=== PATIENT | female | born 1945 | race Caucasian/White ===

== ENCOUNTER 2018-10-21 09:08 | Emergency (ER) | payer MEDICARE ==
[2018-10-21] MEDS ORDERED: Tetracaine 0.5% OPHTH SOLN/PF 4 ML BOT ONE (09:40)
== END 2018-10-21 10:15 | disposition home or self-care (01) ==
LOC: MADERS 09:08
DX: S05.01XA Injury of conjunctiva and corneal abrasion without foreign body, right eye, initial encounter (principal); I48.91 Unspecified atrial fibrillation; E11.9 Type 2 diabetes mellitus without complications; E78.5 Hyperlipidemia, unspecified; E78.00 Pure hypercholesterolemia, unspecified; I10 Essential (primary) hypertension; F32.9 Major depressive disorder, single episode, unspecified; Z79.899 Other long term (current) drug therapy; W22.8XXA Striking against or struck by other objects, initial encounter
CPT/HCPCS: 99283

== ENCOUNTER 2020-11-14 10:03 | Emergency (ER) | payer MEDICARE ==
[2020-11-14 10:57] LABS: #Basophils 0.1 thou/uL (0.0-0.2); #Eosinphils 0.3 thou/uL (0.0-0.7); #Lymphocytes 1.4 thou/uL (1.20-3.40); #Monocytes 0.4 thou/uL (0.11-0.59); #Neutrophils 3.7 thou/uL (1.40-6.50); %Basophils 1.5 % (0.0-1.0); %Eosinophils 5.2 % (0.0-10.0); %Lymphocytes 23.9 % (21.0-51.0); %Monocytes 6.6 % (0.0-10.0); %Neutrophils 62.9 % (42.0-75.0); Hemoglobin 10.7 g/dL (12.0-16.0); Mean Corpuscular HGB CONC 30.7 g/dL (32.0-36.0); Mean Corpuscular Hemoglobin 26.9 pg (27.0-31.0); Mean Corpuscular Volume 87.6 fL (78.0-98.0); Mean Platelet Volume 8.9 fL (7.4-10.4); Platelet Count 189 thou/uL (130-400); RBC Distribution Width 13.7 % (11.5-14.5); Red Blood Cell (RBC) Count 3.97 mill/uL (4.20-5.40); White Blood Cell (WBC) Count 5.9 thou/uL (4.8-10.8)
[2020-11-14 11:08] LABS: ALT (SGPT) 12 U/L (8-55); AST (SGOT) 19 U/L (5-34); Alkaline Phosphatase 57 U/L (40-110); Anion Gap 14 mmol/L (10-20); BUN (Urea Nitrogen) 15 mg/dL (9.8-20.1); Bilirubin, Total 0.4 mg/dL (0.2-1.2); Calc. Creatinine Clearance 0 mL/min (70-130); Calcium 10.3 mg/dL (7.8-10.44); Carbon Dioxide 25 mmol/L (23-31); Chloride 104 mmol/L (98-107); Globulin 2.8 g/dL (2.4-3.5); Glucose 149 mg/dL (83-110); Magnesium 1.1 mg/dL (1.6-2.6); Potassium 4.8 mmol/L (3.5-5.1); Protein, Total 6.8 g/dL (5.8-8.1); Sodium 138 mmol/L (136-145)
[2020-11-14] MEDS ORDERED: Nitroglycerin 0.4 MG TAB 1 EACH ONE (11:28)
[2020-11-14] MEDS ORDERED: Magnesium 2 GM/50 ML BAG (IN WATER) ONE (11:28)
[2020-11-14] MEDS ORDERED: Acetaminophen 325 MG TAB ONE (12:11)
[2020-11-14] MEDS ORDERED: Nitroglycerin 2% Ointment 1 INCH/1 GM Packet ONE (12:11)
== END 2020-11-14 14:23 | disposition short-term general hospital (02) ==
LOC: MADERS 10:03
DX: R07.89 Other chest pain (principal); E83.42 Hypomagnesemia; I48.91 Unspecified atrial fibrillation; K21.9 Gastro-esophageal reflux disease without esophagitis; E78.5 Hyperlipidemia, unspecified; E78.00 Pure hypercholesterolemia, unspecified; I10 Essential (primary) hypertension; E11.40 Type 2 diabetes mellitus with diabetic neuropathy, unspecified; Z79.899 Other long term (current) drug therapy; Z79.84 Long term (current) use of oral hypoglycemic drugs; Z79.82 Long term (current) use of aspirin
CPT/HCPCS: 71045; 80053; 83735; 83880; 84484; 85025; 93005; 96365; J3475

== ENCOUNTER 2021-09-18 09:41 | Emergency (ER) | payer MEDICARE ==
[2021-09-18] MEDS ORDERED: Dexamethasone 4 MG TAB ONE ×2 (10:23→10:24)
[2021-09-18] MEDS ORDERED: Dexamethasone 4 mg/ml Vial ONE (10:24)
== END 2021-09-18 10:31 | disposition home or self-care (01) ==
LOC: MADERS 09:41
DX: K14.8 Other diseases of tongue (principal); E11.9 Type 2 diabetes mellitus without complications; E78.5 Hyperlipidemia, unspecified; I10 Essential (primary) hypertension; Z79.899 Other long term (current) drug therapy
CPT/HCPCS: 99283; J1100; J8540

== ENCOUNTER 2022-03-13 14:07 | Outpatient (CLI) | payer MEDICARE | END 2022-03-13 14:08 | disposition home or self-care (01) | LOC: MADRAD 14:07 | PROVIDERS: ATTEND Neurological Surgery | DX: M47.26 Other spondylosis with radiculopathy, lumbar region (principal); M48.062 Spinal stenosis, lumbar region with neurogenic claudication; Z98.890 Other specified postprocedural states | CPT/HCPCS: 72100 ==

== ENCOUNTER 2022-03-15 17:24 | Emergency (ER) | payer OTHER, MEDICARE ==
[2022-03-15] MEDS ORDERED: HYDROcodone/Acetaminophen 5/325 mg Tablet ONE (19:15)
== END 2022-03-15 19:31 | disposition home or self-care (01) ==
LOC: MADERS 17:24
DX: S80.02XA Contusion of left knee, initial encounter (principal); R42 Dizziness and giddiness; T50.905A Adverse effect of unspecified drugs, medicaments and biological substances, initial encounter; E11.9 Type 2 diabetes mellitus without complications; I10 Essential (primary) hypertension; E78.00 Pure hypercholesterolemia, unspecified; K21.9 Gastro-esophageal reflux disease without esophagitis; Z79.899 Other long term (current) drug therapy; Z79.84 Long term (current) use of oral hypoglycemic drugs; W01.10XA Fall on same level from slipping, tripping and stumbling with subsequent striking against unspecified object, initial encounter

== ENCOUNTER 2022-04-18 13:43 | Outpatient (CLI) | payer MEDICARE | END 2022-04-18 13:44 | disposition home or self-care (01) | LOC: MADRAD 13:43 | PROVIDERS: ATTEND Neurological Surgery | DX: M54.9 Dorsalgia, unspecified (principal); M47.816 Spondylosis without myelopathy or radiculopathy, lumbar region; M51.36 Other intervertebral disc degeneration, lumbar region; Z98.890 Other specified postprocedural states | CPT/HCPCS: 72100 ==

== ENCOUNTER 2023-01-27 11:00 | Outpatient (CLI) | payer MEDICARE ==
[2023-01-27 11:56] LABS: #Basophils 0.1 thou/uL (0.0-0.2); #Eosinphils 0.4 thou/uL (0.0-0.7); #Lymphocytes 1.6 thou/uL (1.20-3.40); #Monocytes 0.4 thou/uL (0.11-0.59); #Neutrophils 2.2 thou/uL (1.40-6.50); %Basophils 1.4 % (0.0-1.0); %Eosinophils 7.7 % (0.0-10.0); %Lymphocytes 35.1 % (21.0-51.0); %Monocytes 8.2 % (0.0-10.0); %Neutrophils 47.7 % (42.0-75.0); Hematocrit 40.9 % (36.0-47.0); Hemoglobin 12.8 g/dL (12.0-16.0); Mean Corpuscular HGB CONC 31.4 g/dL (32.0-36.0); Mean Corpuscular Hemoglobin 30.9 pg (27.0-31.0); Mean Corpuscular Volume 98.3 fl (78.0-98.0); Mean Platelet Volume 10.4 fL (7.4-10.4); Platelet Count 162 10x3/uL (130-400); Red Blood Cell (RBC) Count 4.16 mill/uL (4.20-5.40); White Blood Cell (WBC) Count 4.7 10x3/uL (4.8-10.8)
[2023-01-27 11:58] LABS: Bilirubin Negative (Negative); Blood, Urine Trace (Negative); Clarity Clear (Clear); Glucose, Urine (Dipstick) Negative (Negative); Ketone, Urine Negative (Negative); Leukocyte Moderate (Negative); Nitrite Negative (Negative); Protein, Urine (Dipstick) Negative (Neg-Trace); Specific Gravity, Urine 1.015 (1.005-1.030); Urobilinogen 0.2 mg/dL (Less than 2)
[2023-01-27 12:12] LABS: Albumin 4.4 g/dL (3.4-4.8); Anion Gap 15 mmol/L (10-20); BUN (Urea Nitrogen) 15 mg/dL (9.8-20.1); Calc. Creatinine Clearance 0 mL/min (70-130); Calcium 10.7 mg/dL (7.8-10.44); Carbon Dioxide 25 mmol/L (23-31); Chloride 102 mmol/L (98-107); Estimated GFR 52; Glucose 96 mg/dL (83-110); Magnesium 1.4 mg/dL (1.6-2.6); Phosphorus 3.3 mg/dL (2.3-4.7); Potassium 4.5 mmol/L (3.5-5.1); Sodium 137 mmol/L (136-145)
[2023-01-27 16:56] LABS: Creatinine, Urine 69.05 mg/dL (47-110)
== END 2023-01-27 11:01 | disposition home or self-care (01) ==
LOC: MADLAB 11:00
PROVIDERS: ATTEND Nurse Practitioner Family
DX: M54.50 Low back pain, unspecified (principal); I12.9 Hypertensive chronic kidney disease with stage 1 through stage 4 chronic kidney disease, or unspecified chronic kidney disease; E11.22 Type 2 diabetes mellitus with diabetic chronic kidney disease; N18.30 Chronic kidney disease, stage 3 unspecified; N20.0 Calculus of kidney; M47.816 Spondylosis without myelopathy or radiculopathy, lumbar region; M51.36 Other intervertebral disc degeneration, lumbar region; M25.78 Osteophyte, vertebrae; Z98.890 Other specified postprocedural states
CPT/HCPCS: 36415; 72100; 80048; 81003; 82040; 82306; 82570; 83735; 83970; 84100; 84156; 85025

== ENCOUNTER 2023-10-16 09:53 | Emergency (ER) | payer MEDICARE ==
[2023-10-16] MEDS ORDERED: Ibuprofen 800 MG TAB ONE (10:11)
== END 2023-10-16 11:23 | disposition home or self-care (01) ==
LOC: MADERS 09:53
DX: S92.352A Displaced fracture of fifth metatarsal bone, left foot, initial encounter for closed fracture (principal); S82.62XA Displaced fracture of lateral malleolus of left fibula, initial encounter for closed fracture; E11.9 Type 2 diabetes mellitus without complications; I10 Essential (primary) hypertension; Z79.82 Long term (current) use of aspirin; W01.0XXA Fall on same level from slipping, tripping and stumbling without subsequent striking against object, initial encounter
CPT/HCPCS: 99283

== ENCOUNTER 2023-10-28 19:10 | Emergency (ER) | payer MEDICARE | END 2023-10-28 20:06 | disposition home or self-care (01) | LOC: MADERS 19:10 | DX: S92.352A Displaced fracture of fifth metatarsal bone, left foot, initial encounter for closed fracture (principal); E11.9 Type 2 diabetes mellitus without complications; I10 Essential (primary) hypertension; X50.9XXA Other and unspecified overexertion or strenuous movements or postures, initial encounter | CPT/HCPCS: 99283 ==

== ENCOUNTER 2024-11-29 11:06 | Outpatient (CLI) | payer MEDICARE ==
[2024-11-29 11:39] LABS: Hematocrit 46.5 % (36.0-47.0); Hemoglobin 14.6 g/dL (12.0-16.0); Mean Corpuscular Hemoglobin 29.5 pg (27.0-31.0); Mean Corpuscular Volume 93.6 fl (78.0-98.0); Platelet Count 162 10x3/uL (130-400); Red Blood Cell (RBC) Count 4.96 mill/uL (4.20-5.40); White Blood Cell (WBC) Count 6.9 10x3/uL (4.8-10.8)
[2024-11-29 11:55] LABS: ALT (SGPT) 12 U/L (Less than 34); AST (SGOT) 29 U/L (11-34); Albumin 4.5 g/dL (3.1-4.5); Alkaline Phosphatase 53 U/L (40-110); Anion Gap 19 mmol/L (10-20); BUN (Urea Nitrogen) 20 mg/dL (9.8-20.1); BUN/Creatinine Ratio 18.52; Bilirubin, Direct 0.2 mg/dL (0.1-0.3); Bilirubin, Total 0.7 mg/dL (0.3-1.2); Calc. Creatinine Clearance 0 mL/min (70-130); Calcium 10.2 mg/dL (7.8-10.44); Carbon Dioxide 22 mmol/L (23-31); Cardiac Risk 3.1 (Less than 4.5); Chloride 105 mmol/L (98-107); Cholesterol 147 mg/dl (< 200 Desired); Glucose 98 mg/dL (83-110); Glucose, Urine (Dipstick) Negative (Negative); HDL Cholesterol 48 mg/dL (>60 Neg Risk); LDL Cholesterol, Calculated 74 mg/dL; Leukocyte Small (Negative); Potassium 4.6 mmol/L (3.5-5.1); Protein, Urine (Dipstick) Negative (Neg-Trace); Sodium 141 mmol/L (136-145); Specific Gravity, Urine 1.025 (1.005-1.030); Triglycerides 124 mg/dL (Less than 150); Uric Acid 7.0 mg/dL (2.5-6.2)
[2024-11-29 16:27] LABS: Protein, Urine Random Quant 15.0 mg/dL (1-14)
== END 2024-11-29 11:07 | disposition home or self-care (01) ==
LOC: MADLAB 11:06
PROVIDERS: ATTEND Internal Medicine Nephrology
DX: I13.10 Hypertensive heart and chronic kidney disease without heart failure, with stage 1 through stage 4 chronic kidney disease, or unspecified chronic kidney disease (principal); E11.22 Type 2 diabetes mellitus with diabetic chronic kidney disease; N18.9 Chronic kidney disease, unspecified; R80.9 Proteinuria, unspecified; R31.9 Hematuria, unspecified; N20.0 Calculus of kidney; N39.0 Urinary tract infection, site not specified; E83.52 Hypercalcemia; N25.81 Secondary hyperparathyroidism of renal origin; K80.20 Calculus of gallbladder without cholecystitis without obstruction; K21.9 Gastro-esophageal reflux disease without esophagitis; M10.9 Gout, unspecified; M19.90 Unspecified osteoarthritis, unspecified site; E11.51 Type 2 diabetes mellitus with diabetic peripheral angiopathy without gangrene
CPT/HCPCS: 36415; 80061; 80069; 80076; 81003; 82570; 83970; 84156; 84443; 84550; 85027

== ENCOUNTER 2025-01-16 12:21 | Outpatient (CLI) | payer MEDICARE ==
[2025-01-16 12:50] LABS: ALT (SGPT) 11 U/L (Less than 34); AST (SGOT) 23 U/L (11-34); Albumin 4.2 g/dL (3.1-4.5); Alkaline Phosphatase 40 U/L (40-110); Anion Gap 15 mmol/L (10-20); BUN (Urea Nitrogen) 25 mg/dL (9.8-20.1); Bilirubin, Direct 0.2 mg/dL (0.1-0.3); Bilirubin, Total 0.5 mg/dL (0.3-1.2); Calc. Creatinine Clearance 0 mL/min (70-130); Calcium 10.4 mg/dL (7.8-10.44); Carbon Dioxide 26 mmol/L (23-31); Cardiac Risk 3.4 (Less than 4.5); Chloride 104 mmol/L (98-107); Cholesterol 159 mg/dl (< 200 Desired); Glucose 90 mg/dL (83-110); HDL Cholesterol 47 mg/dL (>60 Neg Risk); LDL Cholesterol, Calculated 89 mg/dL; Potassium 4.4 mmol/L (3.5-5.1); Sodium 141 mmol/L (136-145); Triglycerides 115 mg/dL (Less than 150)
== END 2025-01-16 12:22 | disposition home or self-care (01) ==
LOC: MADLAB 12:21
PROVIDERS: ATTEND Internal Medicine Cardiovascular Disease
DX: E11.9 Type 2 diabetes mellitus without complications (principal); I10 Essential (primary) hypertension
CPT/HCPCS: 36415; 80048; 80061; 80076; 83036